=== PATIENT | female | born 1960 | race Caucasian/White ===

== ENCOUNTER 2021-06-17 09:32 | Emergency (ER) | payer MEDICARE, OTHER ==
[~2021-06-17] VITALS: Ht 170.2 cm; Wt 61.2 kg
[2021-06-17] MEDS ORDERED: ALENDRONATE SOD70 MG PO (09:56)
[2021-06-17] MEDS ORDERED: CEPHALEXIN500 MG PO (09:57)
== END 2021-06-17 11:21 | disposition home or self-care (01) ==
LOC: ED 09:32
DX: S82.832A Other fracture of upper and lower end of left fibula, initial encounter for closed fracture (principal); S92.342A Displaced fracture of fourth metatarsal bone, left foot, initial encounter for closed fracture; Z88.5 Allergy status to narcotic agent; Z79.899 Other long term (current) drug therapy; W01.0XXA Fall on same level from slipping, tripping and stumbling without subsequent striking against object, initial encounter
CPT/HCPCS: 73610; 73630; 99283-25

== ENCOUNTER 2021-08-28 09:44 | Emergency (ER) | payer OTHER, MEDICARE ==
[~2021-08-28] VITALS: Ht 170.2 cm; Wt 61.2 kg
[~2021-08-28 09:44] MED LIST: ALENDRONATE SOD70 MG PO; CEPHALEXIN500 MG PO
[2021-08-28] MEDS ORDERED: HYDROCODON-ACE1 EA10 PO (11:41)
== END 2021-08-28 12:03 | disposition home or self-care (01) ==
LOC: ED 09:44
DX: S22.31XA Fracture of one rib, right side, initial encounter for closed fracture (principal); W01.190A Fall on same level from slipping, tripping and stumbling with subsequent striking against furniture, initial encounter; J93.83 Other pneumothorax; Z88.5 Allergy status to narcotic agent; Z79.899 Other long term (current) drug therapy
CPT/HCPCS: 71101; 99283-25; A9270

== ENCOUNTER 2023-10-10 18:42 | Emergency (ER) | payer MEDICARE, OTHER ==
[~2023-10-10] VITALS: Ht 170.2 cm; Wt 59.4 kg
[2023-10-10] MEDS ORDERED: KETOROLAC TROMETHAMINE 30 MG/ML VIAL IV ONE (19:30)
[2023-10-10] MEDS ORDERED: SODIUM CHLORIDE 0.9% 1,000 ML IV ONE (19:30)
[2023-10-10] MEDS ORDERED: ondansetron HCL 4 MG/2 ML VIAL IV ONE (19:30)
[2023-10-10 19:37] LABS: BASOPHILS 0.5 % (0-2); EOSINOPHILS 1.1 % (0-6); HEMATOCRIT 38.9 % (35.0-50.0); LYMPHOCYTES 19.4 % (24-44); MCH 30.8 (27-36); MCHC 33.4 g/dl (30-36); MONOCYTES 8.8 % (0-12); NEUTROPHILS 70.2 % (39-80); PLATELET COUNT 286 K/uL (140-440); RBC 4.23 M/ul (4.3-5.7); RDW 13.5 (10.5-15.0)
[2023-10-10 19:52] LABS: ALBUMIN 3.5 g/dL (3.4-5.0); ALBUMIN/GLOBULIN RATIO 1.17 (1.1-2.4); ANION GAP 14.2 (7-21); BILIRUBIN, TOTAL 0.4 ng/dL (0.2-1.0); BUN/CREATININE RATIO 17.04 (6.0-28.6); CALCIUM 9.2 mg/dL (8.5-10.1); CREATININE, SERUM 0.88 mg/dL (0.55-1.02); POTASSIUM 3.2 mmol/L (3.5-5.1); PROTEIN, TOTAL 6.5 g/dL (6.4-8.2)
[2023-10-10 19:59] LABS: BILIRUBIN, URINE NEGATIVE (negative); BLOOD/HGB, URINE NEGATIVE (Negative); KETONE, URINE SMALL (Negative); LEUK ESTERASE, URINE NEGATIVE (negative); NITRITE, URINE NEGATIVE (negative); PH, URINE 8.5 (5-7)
[2023-10-10] MEDS ORDERED: CYCLOBENZAPRINE HCL 10 MG HOME.PACK PO ONE (20:15)
[2023-10-10] MEDS ORDERED: ONDANSETRON 4 MG HOME.PACK SL ONE (20:15)
[2023-10-10 20:30] VITALS: BP 161/75
== END 2023-10-10 20:30 | disposition home or self-care (01) ==
LOC: ED 18:42
PROVIDERS: Family Medicine
DX: M54.9 Dorsalgia, unspecified (principal); N13.2 Hydronephrosis with renal and ureteral calculous obstruction; Z88.5 Allergy status to narcotic agent; Z79.899 Other long term (current) drug therapy
CPT/HCPCS: 36415; 74176; 80053; 81003; 83690; 85025; 96374; 96375; 99284-25; A9270; J1885; J2405; J7030